=== PATIENT | female | born 1985 | race Caucasian/White ===

== ENCOUNTER → 2016-12-26 | Outpatient (CLI) | payer BC | LOC: FIMAGING 12:16 | PROVIDERS: ATTEND Obstetrics & Gynecology | DX: Z34.82 Encounter for supervision of other normal pregnancy, second trimester (principal); Z3A.19 19 weeks gestation of pregnancy ==

== ENCOUNTER → 2017-01-30 | Outpatient (CLI) | payer BC | LOC: FIMAGING 12:28 | PROVIDERS: ATTEND Obstetrics & Gynecology | DX: Z34.92 Encounter for supervision of normal pregnancy, unspecified, second trimester (principal); Z3A.24 24 weeks gestation of pregnancy; Z98.891 History of uterine scar from previous surgery ==

== ENCOUNTER 2017-03-19 19:22 | Observation (INO) | payer BC ==
--- NOTE | 2017-03-19 20:49 | GHP ---
[f rep st] HISTORY AND PHYSICAL DATE OF ADMISSION: 03/19/2017 ADMISSION DIAGNOSES: 1. Intrauterine at 31 weeks and 5 days. 2. Leakage of fluid. DISCHARGE DIAGNOSES: 1. Intrauterine at 31 weeks and 5 days. 2. Leukorrhea . CHIEF COMPLAINT: Leakage of fluid. HISTORY OF PRESENT ILLNESS: The patient is a 31-year-old, 2, para 1, female at 31 weeks and 5 days estimated gestational age with MILAGROS of 05/16/2017 who called reporting 5 small gushes of flui d vaginally. She denied any vaginal bleeding or contractions and reports good movement. She reports that she was watching her daughter when she had 3 separate little small gushes of fluid. Aydee hutton went to the bathroom, emptied her bladder and she thought she had 2 more gushes. She subsequently laid down for 20 minutes and had no further leakage noted. She called out of concern. When she ca lled in review of her symptoms, I advised her to come in for further evaluation. Especially since s he reported that these small gushes had wet her underwear. The patient has no other complaints. OBSTETRICAL HISTORY: Significant for prior delivery. PHYSICAL EXAMINATION: VITAL SIGNS: Blood pressure 119/72, heart rate 60, temp 36.7 degrees Celsius . heart rate tracing 130s, reactive and reassuring with accelerations present and moderate varia bility present and no decelerations. Tocometer: No contractions seen. GENERAL: No acute distress . Well-developed, well-nourished female. CHEST: Clear to auscultation bilaterally. CARDIOVASCULA R: Regular rate and rhythm. ABDOMEN: Gravid, soft and nontender. STERILE SPECULUM EXAM: A specu lum was placed and there was milky white discharge present. Negative ferning, pooling, Valsalva and Nitrazine. The pH was acidic. There were no signs of anything abnormal under the microscope. Her cervix was closed long and high. ASSESSMENT: Patient is a 31-year-old, 2, para 1 female at 31 weeks and 5 days estimated ges tational age with leukorrhea . No signs of ruptured membranes present on exam and no signs of labor. The status is reassuring. PLAN: 1. Discharge the patient home with labor precautions. 2. Follow up as scheduled with her primary [employer] doctor. /[id number]/MODL
== END 2017-03-19 20:25 | disposition home or self-care (01) ==
LOC: INTOOBSV 19:22 → FLD 19:22
PROVIDERS: ADMIT Obstetrics & Gynecology; ATTEND Obstetrics & Gynecology
DX: O99.89 Other specified diseases and conditions complicating pregnancy, childbirth and the puerperium (principal); N89.8 Other specified noninflammatory disorders of vagina; Z3A.31 31 weeks gestation of pregnancy
CPT/HCPCS: 59025; G0378

== ENCOUNTER → 2017-04-10 | Outpatient (CLI) | payer BC | LOC: FIMAGING 12:27 | PROVIDERS: ATTEND Obstetrics & Gynecology | DX: Z34.93 Encounter for supervision of normal pregnancy, unspecified, third trimester (principal); Z3A.34 34 weeks gestation of pregnancy; Z98.891 History of uterine scar from previous surgery; Z82.79 Family history of other congenital malformations, deformations and chromosomal abnormalities ==

== ENCOUNTER 2017-05-09 10:10 | Inpatient (IN) | payer BC ==
--- NOTE | 2017-05-08 09:26 | GHP ---
[f rep st] PREOP HISTORY AND PHYSICAL DATE OF ADMISSION: 05/09/2017 CHIEF COMPLAINT: Intrauterine at 39 weeks gestation with previous section presenting for repeat section. HISTORY OF PRESENT ILLNESS: The patient is a 31-year-old, G2, P1001, female, who is at 39 weeks gestation by LMP and 6-week ultrasound, who presents for delivery via repeat section. Her due date is 05/16/2017. She had a previous section for arrest of dilation. PAST MEDICAL HISTORY: Negative. PAST SURGICAL HISTORY: One previous section. GYNECOLOGIC HISTORY: Negative. OBSTETRICAL HISTORY: As stated. EXAM: VITAL SIGNS: Stable. ABDOMEN: Gravid, nontender. Estimated weight is 7 pounds. LABS: Significant for A positive, antibody screen negative. Rubella immune. RPR nonreactive. Hepatitis B surface antigen negative. HIV not done. One- hour Glucola was 93, and group B strep is negative. ASSESSMENT AND PLAN: This is a 31-year-old, G2, P1, female who is at 39 weeks gestation, who had a previous section and desires repeat. The risks of the procedure including bleeding, blood transfusion, infection, damage to the bowel, bladder, uterus, fallopian tubes, ovaries, blood vessels, and nerves were discussed. The patient understands these risks and agrees to the procedure. /[id number]/MODL MTDD
[~2017-05-09 10:10] MED LIST: LR 1,000 ML IV SCH; LR 500 ML IV ONE; ceFAZolin 2 GM/DEXTROSE 100 ML IV ONE
[2017-05-09] MEDS ORDERED: OLIVE OIL 118 ML BTL MISC PRN (10:33)
[2017-05-09] MEDS ORDERED: OXYTOCIN/RINGERS LACTATE 1,000 ML IV PRN (10:33)
[2017-05-09] MEDS ORDERED: LR 1,000 ML IV PRN (10:33)
[2017-05-09] MEDS ORDERED: TERBUTALINE SULFATE 1 MG/ML VIAL IV PRN (10:33)
[2017-05-09] MEDS ORDERED: EPSOM SALT 454 GM TP PRN (10:33)
[2017-05-09 10:53] LABS: % IMMATURE GRANULYOCYTES 0.7 % (0.0-1.1); ABSOLUTE IMMATURE GRANULOCYTES 0.07 10^3/uL (0.00-0.10); ADD DIFF? NO; ADD MORPH? NO; ADD SCAN? NO; ATYPICAL LYMPHOCYTE FLAG 0 (0-99); FRAGMENT RBC FLAG 0 (0-99); HEMATOCRIT 36.3 % (38.0-47.0); HEMOGLOBIN 12.6 g/dL (12.6-16.3); LEFT SHIFT FLG 0 (0-99); LIPEMIA HEMOLYSIS FLAG 90 (0-99); MEAN CELL HEMOGLOBIN 29.5 pg (27.9-34.1); MEAN CELL HEMOGLOBIN CONCENTR. 34.7 g/dL (32.4-36.7); MEAN PLATELET VOLUME 11.1 fL (8.7-11.7); PLATELET CLUMPS FLAG 0 (0-99); PLATELET COUNT 194 10^3/uL (150-400); RED BLOOD CELL COUNT 4.27 10^6/uL (4.18-5.33); RED CELL DISTRIBUTION WIDTH 13.2 % (11.5-15.2)
--- NOTE | 2017-05-09 11:43 | PREANESOB ---
Obstetric Pre-Anesthesia Info - General Info Proposed Procedure: Repeat C Section. : 2 Para: 1 WBD: 39 - Info Status: Full Term Monitors: External FHR Baseline (bpm): 145 FHR Pattern: Reassuring - Labor Status Section History: Repeat Indications for Current Section: Elective/Repeat Labor Epidural: No Anesthesia ROS: Prior labor epidural and C Section. Allergies/Adverse Reactions: Allergy/AdvReac Type Severity Reaction Status Date / Time Sulfa (Sulfonamide Allergy Intermediate Rash Verified 11/12/14 01:26 Antibiotics) avaguard Allergy Uncoded 05/09/17 10:35 Home Medications: Medication Instructions Recorded 1 tab PO DAILY 11/12/14 IRON,CARBONYL [IRON] 1 tab PO DAILY 05/09/17 Visit Medications: Generic Name Dose Route Start Last Admin Trade Name Freq PRN Reason Stop Dose Admin Lactated Ringer's 1,000 mls @ 125 mls/hr 05/09/17 06:00 Lr IV 11/05/17 05:59 CONT LISA Lactated Ringer's 1,000 mls @ 0 mls/hr 05/09/17 10:33 Lr IV 11/05/17 10:32 PRN PRN SEE PROTOCOL CONDITIONS Protocol Per Protocol Oxytocin/Lactated Ringer's 1,000 mls @ 150 mls/hr 05/09/17 10:33 Pitocin 20 Units/Lr (Premix) IV PRN PRN Post- bleeding Ibuprofen 600 mg 05/09/17 10:33 Motrin PO 11/05/17 10:32 Q6HRS PRN post , inflammation Magnesium Sulfate 454 gm 05/09/17 10:33 Epsom Salt TP 11/05/17 10:32 PRN PRN perineal discomfort Ventura Oil 118 ml 05/09/17 10:33 Sweet Oil MISC 11/05/17 10:32 ONCE PRN preneal massage Terbutaline Sulfate 0.25 mg 05/09/17 10:33 Brethine IV 11/05/17 10:32 ONCE PRN Tachysystole Discontinued Medications Generic Name Dose Route Start Last Admin Trade Name Freq PRN Reason Stop Dose Admin Cefazolin Sodium/Dextrose 100 mls @ 200 mls/hr 05/08/17 09:02 Ancef 2 Gm (Premix) IV 05/08/17 09:31 ONCALL ONE Protocol Lactated Ringer's 500 mls @ 0 mls/hr 05/08/17 09:02 Lr IV 05/08/17 09:03 ONCE ONE As Directed Lactated Ringer's 1,000 mls @ 125 mls/hr 05/08/17 09:30 Lr IV 11/04/17 09:29 CONT LISA Cefazolin Sodium/Dextrose 100 mls @ 200 mls/hr 05/09/17 06:00 Ancef 2 Gm (Premix) IV 05/09/17 06:29 ONCALL ONE Protocol Lactated Ringer's 500 mls @ 0 mls/hr 05/08/17 13:30 Lr IV 05/08/17 13:31 ONCE ONE As Directed Lactated Ringer's 500 mls @ 0 mls/hr 05/09/17 06:00 Lr IV 05/09/17 06:01 ONCE ONE As Directed - Anesthesia History Response to Local Anesthetics: Normal Anesthesia & Operative History: No Prior Problems Family Anesthesia History: Negative - Social History Substance Use/Abuse: Denies - Focused Exam Blood Pressure: 114/81 Heart Rate: 62 Respiratory Rate: 16 Height/Weight (Nursing): Height 170.18 cm Weight 65.771 kg Physical Exam: Within normal limits. ASA Status: II Labs: 05/09/17 10:30 Patient ABO/Rh A POSITIVE 05/09/17 10:30 - Plan Anesthetic Plan: SAB Consent Signed and on Chart: Yes Patient/Guardian Understands and Agrees to Plan: Yes
[2017-05-09] MEDS ORDERED: fentaNYL 100 MCG/2 ML INJ ONE (11:50)
[2017-05-09] MEDS ORDERED: morphINE PF 5 MG/10 ML INJ ONE (11:50)
[2017-05-09] MEDS ORDERED: AMMONIA AROMATIC 1 EACH AMP IH ONE (11:51)
[2017-05-09] MEDS ORDERED: PHENYLEPHRINE HCL 100 MCG/ML SYR ONE (11:51)
[2017-05-09] MEDS ORDERED: OLIVE OIL 118 ML BTL ONE (11:51)
[2017-05-09] MEDS ORDERED: OXYTOCIN 100 UNITS/10 ML VIAL ONE (11:51)
[2017-05-09] MEDS ORDERED: LIDOCAINE 1% 300 MG/30 ML SDV ONE (11:51)
[2017-05-09] MEDS ORDERED: DEXAMETHASONE 4 MG/ML VIAL ONE ×2 (11:51→11:52)
[2017-05-09] MEDS ORDERED: MISOPROSTOL 200 MCG TAB ONE (11:52)
[2017-05-09] MEDS ORDERED: ONDANSETRON 4 MG/2 ML VIAL ONE ×2 (11:52)
[2017-05-09] MEDS ORDERED: ceFAZolin 2 GM/DEXTROSE 100 ML IV ONE (12:00)
[2017-05-09] MEDS ORDERED: HYDROCODONE/APAP 5/325 TAB PO PRN (12:01)
[2017-05-09] MEDS ORDERED: PROMETHAZINE HCL 25 MG/ML INJ IVP PRN (12:01)
[2017-05-09] MEDS ORDERED: SIMETHICONE 80 MG TAB CHEW PO PRN (12:01)
--- NOTE | 2017-05-09 13:02 | OBDEL ---
Info Type: Repeat (previous C/S) GBS+: No Operative Report - Delivery Pre-op Diagnoses: repeat C/S Post-op Diagnoses: repeat C/S Nulliparous Prior to Delivery: No Presentation at Delivery: Vertex Procedure: Scheduled Surgeon: Germaine Bejarano Divorce Attorney: Viridiana Mcnair Anesthesiologist: Christopher Weaver Shelver/HOME THEATER INSTALLER: Simran Ricketts L&Heather Analgesia/Anesthesia Type: Spinal Complications: None IV Fluid (ml): 2,200 EBL: 750 [place] [facility] [place] Delivery Date: 05/09/17 Delivery Time: 12:40 MILAGROS: 05/16/17 Gestational Age: 39 week(s) and 0 day(s) Sex of : Female Score (1 Min): 9 Score (5 Min): 9 ICD10 Worksheet Patient Problems: Problems Problem Status Onset delivery delivered Acute Leukorrhea, vaginal, noninfectious Acute SROM (spontaneous rupture of membranes) Acute
[2017-05-09] MEDS ORDERED: ONDANSETRON 4 MG/2 ML VIAL IVP PRN (13:27)
[2017-05-09] MEDS ORDERED: NALOXONE HCL 0.4 MG/ML INJ IVP PRN (13:27)
[2017-05-09] MEDS ORDERED: SCOPOLAMINE HYDROBROMIDE 1.5 MG PATCH TD PRN (13:29)
--- NOTE | 2017-05-09 13:29 | POSTANESTH ---
Post Anesthetic Evaluation Cardiovascular Status: Normal, Stable, Similar to Pre-Op Cond Respiratory Status: Normal, Stable, Similar to Pre-op Cond. Level of Consciousness/Mental Status: Can Participate in Eval, Alert and Oriented Pain Control: Adequate, Prn Tx Ordered Nausea/Vomiting Control: Adequate, Prn Tx Ordered Complications Possibly Related to Anesthesia: None Noted
[2017-05-09] MEDS ORDERED: KETOROLAC 30 MG/1 ML SDV ONE (15:17)
[2017-05-09] MEDS: KETOROLAC 30 MG/1 ML SDV IVP SCH ×2 (15:21→21:39)
--- NOTE | 2017-05-09 20:52 | GOP ---
[f rep st] OPERATIVE REPORT DATE OF OPERATION: 05/09/2017 SURGEON: Germaine Melendez MD Asisstant: Viridiana Sylvester CNM ANESTHESIA: Spinal. PREOPERATIVE DIAGNOSIS: Intrauterine at 39-0/7 weeks' gestation with previous section. POSTOPERATIVE DIAGNOSIS: Intrauterine at 39-0/7 weeks' gestation with previous section. PROCEDURE PERFORMED: Repeat low transverse section. FINDINGS: Viable female in vertex presentation. 's 9 and 9. Normal uterus, fallopian tubes, and ovaries. SPECIMENS: None. ESTIMATED BLOOD LOSS: 700 mL. INDICATIONS: The patient is a 31-year-old, , female who, at 39-0/7 weeks' gestation presents for repeat section. DESCRIPTION OF PROCEDURE: The patient was taken to the operating room where she was prepped and draped in normal sterile fashion in the dorsal supine position with a leftward tilt. A surgical time-out was performed, verifying the patient's name, date of , planned procedure, and site. The patient received 2 g of Ancef preoperatively. A Pfannenstiel skin incision was made and removed the previous scar in elliptical fashion. The fascia was incised with the Bovie cautery and extended laterally with the Reyes scissors. The superior aspect of the fascia was grasped with Bren clamps and the rectus muscle was dissected off bluntly and with the Bovie cautery. The inferior aspect of the fascia was grasped with Bren clamps. The rectus muscle was dissected off bluntly and with the Bovie cautery. The peritoneum was identified and entered in bluntly. The bladder blade was placed. The vesicouterine peritoneum was incised with the Metzenbaum scissors, and the bladder flap was created digitally. The bladder blade was replaced. The uterus was incised with a scalpel and extended laterally with the bandage scissors. The was delivered. The cord was clamped and cut. The was handed to the waiting nurse practitioner. The placenta was delivered spontaneously. The uterus was exteriorized and cleared of all clots and debris. Uterine incision was reapproximated with 0 Monocryl in a running, locked fashion in 2 layers. The uterus was returned to the abdomen. The gutters were cleared of all clots and debris. The subfascial spaces were inspected and noted to be hemostatic. The uterine incision was reinspected and noted to be hemostatic. The rectus muscle was reapproximated with 3-0 Vicryl. The fascia was reapproximated with 0 Vicryl. The subcutaneous tissue was irrigated, and the skin was closed with 4-0 Monocryl. All counts were correct x2. ASSISTANT SITE MANAGER SURGEON: Surgical 1st assist was Viridiana Mcnair CNM. COMPLICATIONS: None. OUTCOME: Stable to recovery room. /[id number]/MODL MTDD
[2017-05-10] MEDS: KETOROLAC 30 MG/1 ML SDV IVP SCH ×2 (03:29→08:56)
[2017-05-10] MEDS: DOCUSATE SODIUM 100 MG CAP PO PRN ×2 (08:57→20:53)
--- NOTE | 2017-05-10 12:36 | SOAPPROG ---
SOAP Progress Note Assessment/Plan: Assessment: 31 s/p rltcs, pod 1, doing well. Plan: 05/10/17 12:34 Rh +, rubella immune, home tomorrow. Subjective: 31 s/p rltcs, pod 1, doing well. Objective: Vital Signs Temp Pulse Resp BP Pulse Ox 36.8 C 50 L 20 94/57 L 98 05/10/17 08:00 05/10/17 08:00 05/10/17 08:00 05/10/17 08:00 05/10/17 08:00 Laboratory Results 05/10/17 03:45 05/09/17 05/10/17 05/11/17 05:59 05:59 05:59 Intake Total 3825 Output Total 3350 900 Balance 475 -900 Physical Exam - Physical Exam General Appearance: no apparent distress Respiratory: lungs clear Cardiac/Chest: regular rate, rhythm Abdomen: non-tender Skin: warm/dry Extremities: non-tender Neuro/Psych: oriented x 3 ICD10 Worksheet Patient Problems: Problems Problem Status Onset delivery delivered Acute Leukorrhea, vaginal, noninfectious Acute SROM (spontaneous rupture of membranes) Acute
[2017-05-10] MEDS ORDERED: PATCH REMOVAL 1 EA PATCH TD ONE (13:30)
[2017-05-10] MEDS: IBUPROFEN 600 MG TAB PO PRN ×2 (15:03→20:53)
[2017-05-10] MEDS ORDERED: OXYCODONE/APAP 5/325 TAB PO PRN (19:16)
--- NOTE | 2017-05-10 21:02 | OBGCSDC ---
General Delivery Information - General Info : 2 Para: 2 Delivery Physician/CNM: Germaine Bejarano [employer] Chain Quiller Tender: Viridiana Mcnair Admission Date: 05/09/17 Labs: Patient ABO/Rh A POSITIVE 05/09/17 10:30 Hct 34.9 % (38.0-47.0) L 05/10/17 03:45 Vaginal - Diagnosis Presentation at Delivery: Vertex - Operations/Procedures L&D Analgesia/Anesthesia Type: Spinal - Delivery Number of Prior Sections: 1 Indications for Prior Section: Arrest of Dilation Indications for Current Section: Elective/Repeat Type: Repeat Surgical Procedures: Scheduled Intra-op Complications: None EBL: 700 ml L&D Analgesia/Anesthesia Type: Spinal - Hospital Course Antepartum: history of previous ltcs Intrapartum: uncomplicated : none [place] [facility] [place] Delivery Date: 05/09/17 Delivery Time: 12:40 MILAGROS: 05/16/17 Gestational Age: 39 week(s) and 1 day(s) Sex of : Female Weight (gm): 3414 g Score (1 Min): 8 Score (5 Min): 9 Discharge Information - Discharge Information Discharge Medications: Oxycodone Condition: Good Instruction/Follow Up: Two Weeks
[2017-05-11] MEDS: IBUPROFEN 600 MG TAB PO PRN ×2 (02:58→08:48)
[2017-05-11 08:27] VITALS: BP 96/52; PULSE 53; RESP 14; TEMP 98.4; O2SAT 95
--- NOTE | 2017-05-11 08:47 | OBGCSDC ---
General Delivery Information - General Info : 2 Para: 2 Delivery Physician/CNM: Germaine Bejarano Back Seam Stitcher: Viridiana Mcnair Admission Date: 05/09/17 Labs: Patient ABO/Rh A POSITIVE 05/09/17 10:30 Hct 34.9 % (38.0-47.0) L 05/10/17 03:45 Vaginal - Diagnosis Presentation at Delivery: Vertex - Operations/Procedures L&D Analgesia/Anesthesia Type: Spinal - Delivery Number of Prior Sections: 1 Indications for Prior Section: Arrest of Descent Type: Repeat Surgical Procedures: Scheduled Intra-op Complications: None EBL: 700 ml L&D Analgesia/Anesthesia Type: Spinal [facility] [place] Delivery Date: 05/09/17 Delivery Time: 12:40 MILAGROS: 05/16/17 Gestational Age: 39 week(s) and 2 day(s) Sex of Infant: Female Weight (gm): 3414 g Score (1 Min): 8 Score (5 Min): 9 Discharge Information - Discharge Information Discharge Medications: Iron, Ibuprofen, Oxycodone, Vitamins Condition: Good Instruction/Follow Up: Two Weeks, Four Weeks, Six Weeks Discharge Physician/CNM: Viridiana Mcnair
== END 2017-05-11 13:00 | disposition home or self-care (01) | DRG 766 ==
LOC: FLD 10:10 → FOB 17:23
PROVIDERS: ADMIT Obstetrics & Gynecology; ATTEND Obstetrics & Gynecology
PROC: 10D00Z1 Extraction of Products of Conception, Low, Open Approach (ICD-10-PCS; principal; 2017-05-09)
DX: O34.219 Maternal care for unspecified type scar from previous cesarean delivery (principal); Z37.0 Single live birth; Z3A.39 39 weeks gestation of pregnancy
CPT/HCPCS: J0690; J1100; J1885; J2274; J2370; J2405; J2550; J2590; J3010